=== PATIENT | female | born 1995 | race Asian ===

== ENCOUNTER 2017-03-12 11:26 | Emergency (ER) | payer OTHER ==
[~2017-03-12] VITALS: Ht 157.5 cm; Wt 49.9 kg
[2017-03-12 11:35] VITALS: BP_SYST 152
--- NOTE | 2017-03-12 11:41 | NUR ---
Patient to ER bed 5 to gown for evaluation. Side rails up. Report given to Kori CASEY.
--- NOTE | 2017-03-12 12:05 | NUR ---
Dr Blankenship at bedside examining patient
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
[2017-03-12 12:54] VITALS: BP_SYST 138
--- NOTE | 2017-03-12 12:57 | NUR ---
Patient given written and verbal discharge instructions and verbalizes understanding. ER MD discussed with patient the results and treatment provided. Patient in stable condition. ID arm band removed. Rx of Tramadol given. Patient educated on pain management and to follow up with PMD. Pain Scale 3/10 tolerable for pt. Opportunity for questions provided and answered.
== END 2017-03-12 12:54 | disposition home or self-care (01) ==
LOC: SED 11:26
DX: S33.5XXA Sprain of ligaments of lumbar spine, initial encounter (principal); V89.2XXA Person injured in unspecified motor-vehicle accident, traffic, initial encounter; Y93.89 Activity, other specified; Y92.488 Other paved roadways as the place of occurrence of the external cause; Y99.8 Other external cause status
CPT/HCPCS: 72100-TC; 81025; 99284